=== PATIENT | male | born 1930 | race African-American/Black ===

== ENCOUNTER 2017-12-26 03:03 | Inpatient (IN) | payer MEDICARE ==
[~2017-12-26] VITALS: Ht 177.8 cm; Wt 93.9 kg
[2017-12-26] MEDS ORDERED: ASPIRIN 81MG TABLET PO STA (08:31)
[2017-12-26] MEDS ORDERED: FUROSEMIDE 40MG/4ML VIAL IV STA (08:31)
[2017-12-26] MEDS ORDERED: NITROGLYCERIN OINT 1GM/INCH UDPKT TD STA (08:31)
[2017-12-26] MEDS ORDERED: MORPHINE SULFATE 4 MG/ML CPJ (NOT FOR IM USE) IV STA (09:11)
[2017-12-26] MEDS ORDERED: ONDANSETRON HCL 4MG/2ML VIAL IV STA (09:11)
[2017-12-26 09:26] LABS: BASOPHILS % 0.8 % (0.0-2.0); EOSINOPHILS % 0.1 % (0.0-5.0); HEMATOCRIT. 31.7 % (42.0-52.0); HEMOGLOBIN. 10.9 g/dL (14.0-18.0); LYMPHOCYTES % 13.9 % (20.0-50.0); MEAN CORPUSCULAR HEMOGLOBIN 34.7 pg (28.0-32.0); MEAN CORPUSCULAR VOLUME 101.2 fL (80.0-94.0); MEAN PLATELET VOLUME 7.6 fl (7.4-10.4); MONOCYTES % 12.5 % (2.0-8.0); NEUTROPHILS % 72.7 % (40.0-76.0); PLATELET 96 x1000/uL (130-400); RED BLOOD CELL COUNT 3.13 mill/uL (4.7-6.1); RED CELL DISTRIBUTION WIDTH 16.9 % (11.6-14.6)
[2017-12-26 09:31] LABS: CHLORIDE 107 mEq/L (98-107)
[2017-12-26 09:47] LABS: D-DIMER 30.4 mg/L FEU (<0.50); INR 1.2; PROTHROMBIN TIME 12.2 sec (9.4-11.6)
[2017-12-26] MEDS ORDERED: ENOXAPARIN 100MG/ML SYR SUBCUT ONE (11:15)
[2017-12-26] MEDS ORDERED: IOHEXOL-350 100 ML BOTTLE ONE (11:23)
[2017-12-26 13:30] VITALS: BP 119/65
[2017-12-26 13:31] VITALS: BP 119/65
[2017-12-26] MEDS ORDERED: MORPHINE SULFATE 4 MG/ML CPJ (NOT FOR IM USE) IV PRN (13:45)
[2017-12-26] MEDS ORDERED: ATEN50TA MT (15:47)
[2017-12-26] MEDS ORDERED: ABIR250T MT (15:51)
[2017-12-26] MEDS ORDERED: FURO40TA5 MT (15:51)
[2017-12-26] MEDS ORDERED: ASPI-1159 MT (15:51)
[2017-12-26] MEDS ORDERED: PRED10TA23 MT (15:51)
[2017-12-26 16:11] VITALS: BP 105/70
[2017-12-26] MEDS: NITROGLYCERIN OINT 1GM/INCH UDPKT TD SCH ×2 (16:37→16:38)
[2017-12-26] MEDS: PREDNISONE 20MG TABLET PO SCH (18:10)
[2017-12-26] MEDS ORDERED: HYDROCODONE/ACETAMINOPHEN 5/325MG TABLET PO PRN (18:30)
[2017-12-26 20:00] VITALS: BP 106/61
[2017-12-26] MEDS ORDERED: ENOXAPARIN 100MG/ML SYR SUBCUT SCH (23:00)
[2017-12-27] VITALS (7 sets, daily range): BP systolic 93–102; BP diastolic 50–66
[2017-12-27 00:11] LABS: CREATINE KINASE MB FRACTION 2.8 ng/mL (0.5-3.6)
[2017-12-27] MEDS: NITROGLYCERIN OINT 1GM/INCH UDPKT TD SCH (06:00)
[2017-12-27 07:01] LABS: BASOPHILS % 0.1 % (0.0-2.0); HEMATOCRIT. 27.2 % (42.0-52.0); HEMOGLOBIN. 9.4 g/dL (14.0-18.0); LYMPHOCYTES % 10.7 % (20.0-50.0); MEAN CORPUSCULAR HEMOGLOBIN 34.7 pg (28.0-32.0); MEAN CORPUSCULAR VOLUME 100.1 fL (80.0-94.0); MEAN PLATELET VOLUME 7.6 fl (7.4-10.4); MONOCYTES % 11.4 % (2.0-8.0); NEUTROPHILS % 77.8 % (40.0-76.0); PLATELET 83 x1000/uL (130-400); RED BLOOD CELL COUNT 2.72 mill/uL (4.7-6.1); RED CELL DISTRIBUTION WIDTH 16.9 % (11.6-14.6)
[2017-12-27] MEDS ORDERED: ZYTIGA 250 MG PO SCH (07:10)
[2017-12-27 07:33] LABS: CHLORIDE 103 mEq/L (98-107)
[2017-12-27 07:56] LABS: CREATINE KINASE MB FRACTION 2.1 ng/mL (0.5-3.6)
[2017-12-27] MEDS ORDERED: ASPIRIN 81MG TABLET PO SCH (09:00)
[2017-12-27] MEDS ORDERED: TAMSULOSIN HCL 0.4MG SR CAPSULE PO SCH (09:00)
[2017-12-27] MEDS ORDERED: LOSARTAN POTASSIUM 100 MG TABLET PO SCH (09:00)
[2017-12-27] MEDS ORDERED: ATENOLOL 50 MG TABLET PO SCH (09:00)
[2017-12-27] MEDS: PREDNISONE 20MG TABLET PO SCH ×2 (09:59→17:04)
[2017-12-27] MEDS ORDERED: FUROSEMIDE 40MG/4ML VIAL IVP NR (10:30)
[2017-12-27] MEDS ORDERED: LOSARTAN POTASSIUM 50 MG TABLET PO SCH (12:00)
[2017-12-27] MEDS ORDERED: ENOXAPARIN 30MG/0.3ML SYR SUBCUT SCH (12:00)
[2017-12-27] MEDS ORDERED: ENOXAPARIN 40MG/0.4ML SYR SUBCUT SCH (13:26)
[2017-12-27] MEDS ORDERED: OXYCODONE HCL/ACETAMINOPHEN 5/325MG TABLET PO PRN ×2 (13:45)
[2017-12-27] MEDS ORDERED: ATORVASTATIN CALCIUM 20MG TABLET PO SCH (21:00)
== END 2017-12-27 17:35 | disposition short-term general hospital (02) | DRG 281 ==
LOC: ER 03:03 → EDBEDREQ 08:35 → 8WST 11:41 → EDBEDREQ 11:44 → ENRESERV 12:22
PROVIDERS: ADMIT Internal Medicine Critical Care Medicine; ATTEND Internal Medicine Critical Care Medicine
DX: I21.4 Non-ST elevation (NSTEMI) myocardial infarction (principal); C79.51 Secondary malignant neoplasm of bone; C61 Malignant neoplasm of prostate; N13.2 Hydronephrosis with renal and ureteral calculous obstruction; M54.9 Dorsalgia, unspecified; M19.90 Unspecified osteoarthritis, unspecified site; Z60.2 Problems related to living alone; E66.9 Obesity, unspecified; N18.2 Chronic kidney disease, stage 2 (mild); N40.0 Benign prostatic hyperplasia without lower urinary tract symptoms; I12.9 Hypertensive chronic kidney disease with stage 1 through stage 4 chronic kidney disease, or unspecified chronic kidney disease; G89.29 Other chronic pain; Z87.891 Personal history of nicotine dependence; Z90.49 Acquired absence of other specified parts of digestive tract; Z92.3 Personal history of irradiation; Z79.899 Other long term (current) drug therapy; Z88.0 Allergy status to penicillin; Z68.29 Body mass index [BMI] 29.0-29.9, adult
CPT/HCPCS: 36415; 71045; 71275; 80048; 80053; 82553; 83880; 84153; 84484; 85025; 85379; 85610; 85730; 93005; 93970; 96372; 96374; 96375; 99291; C1893; J1650; J1940; J2270; J2405; J7512; Q9967